=== PATIENT | female | born 1985 | race Caucasian/White ===

== ENCOUNTER 2016-10-29 07:07 | Day surgery (SDC) | payer BC ==
[2016-10-29] MEDS ORDERED: Lactated Ringers 1,000 ML IV SCH ×2 (08:15→11:15)
[2016-10-29] MEDS ORDERED: Dexamethasone 4 MG/ML 5 ML MDV IVPUSH ONE (08:30)
[2016-10-29] MEDS ORDERED: Lactated Ringers 1,000 ML IV ONE (08:30)
[2016-10-29] MEDS ORDERED: Neostigmine Methylsulfate 1 MG/ML 5 ML Syringe IV ONE (08:30)
[2016-10-29] MEDS ORDERED: Succinylcholine 200 MG/10 ML MDV IV ONE (08:30)
[2016-10-29] MEDS ORDERED: fentaNYL 100 MCG/2 ML SDV IV ONE (08:30)
[2016-10-29] MEDS ORDERED: Rocuronium 100 MG/10 ML MDV IV ONE (08:30)
[2016-10-29] MEDS ORDERED: Midazolam 1 MG/ML 2 ML SDV IV ONE (08:30)
[2016-10-29] MEDS ORDERED: Ondansetron 4 MG/2 ML SDV IVPUSH ONE (08:30)
[2016-10-29] MEDS ORDERED: Propofol 200 MG/20 ML SDV IV ONE (08:30)
[2016-10-29] MEDS ORDERED: diphenhydrAMINE 50 MG/ML SDV IV ONE (08:30)
[2016-10-29] MEDS ORDERED: Ketorolac 30 MG/ML SDV IVPUSH ONE (08:30)
--- NOTE | 2016-10-29 08:37 | PCM.HPR ---
H & P Addendum review - H & P Addendum Review Date of Original H & P: 10/25/16 Date Reviewed: 10/29/16 Patient was examined: No Changes (ok to proceed with lap tuyet)
--- NOTE | 2016-10-29 09:34 | PCM.OPNOTE ---
- General Post-Op/Procedure Note Date of Surgery/Procedure: 10/29/16 Operative Procedure(s): Lap Linette Pre Op Diagnosis: Chronic Cholecystitis Post-Op Diagnosis: Same Anesthesia Technique: General ET tube Primary Surgeon: Dominik Baptiste Anesthesia Provider: Edie MIKE in mLs: 5 Complications: None Condition: Good
[2016-10-29] MEDS ORDERED: Morphine 2 MG/ML Syringe IVPUSH PRN (09:37)
[2016-10-29] MEDS ORDERED: traMADol 50 MG Tab PO ONE (11:09)
[2016-10-29] MEDS ORDERED: Sodium Chloride 0.9% 10 ML Syringe FLUSH PRN (11:15)
--- NOTE | 2016-10-29 13:41 | OR ---
DATE OF OPERATION: 10/29/2016 SURGEON: Dominik Baptiste MD PREOPERATIVE DIAGNOSIS: Chronic cholecystitis. POSTOPERATIVE DIAGNOSIS: Chronic cholecystitis. PROCEDURE: Laparoscopic cholecystectomy. ANESTHESIA: General. MATERIALS INSPECTOR: None. PROCEDURE IN DETAIL: The patient was brought to the operating room, where general endotracheal anesthesia was administered. The abdomen was prepped with ChloraPrep and draped sterilely. An infraumbilical incision was made and extended into the peritoneal cavity without difficulty. The Tala cannulator was introduced and a pneumoperitoneum obtained. The remaining three 5-mm ports were placed in the usual positions. General exploration revealed the surface of the liver, stomach, omentum, bowel, and peritoneal surfaces to be normal. There were some adhesions on the undersurface that were taken down with blunt dissection. The cystic artery and cystic duct were clearly dissected free. Minimal oozing occurred during the dissection. The cystic artery was doubly clipped proximally and once distally and then transected. The anatomy of the cystic duct was reconfirmed and could be seen entering the gallbladder and extending towards the common bile duct. This was doubly clipped proximally and once distally and then transected. The gallbladder was then removed from the bed of the liver without difficulty. No bile leakage occurred. The gallbladder was brought out through the umbilical incision. The right upper quadrant was irrigated and inspected, return was clear, and hemostasis was assured. Ports were removed under direct vision and remained hemostatic. The umbilical fascia was closed with [id number] #0 Vicryl. The skin was closed with #4-0 Vicryl subcuticular sutures. Benzoin and Steri-Strips were placed and Band-Aids applied. The patient tolerated the procedure well. Estimated blood loss is 5 mL. Patient returned to postanesthesia in stable condition. ESTIMATED BLOOD LOSS: 5 mL. /[id number] ALLISON/GABY
[2016-10-29 13:49] VITALS: BP 128/78
== END 2016-10-29 13:21 | disposition home or self-care (01) ==
LOC: FB.SDS 07:07
PROVIDERS: ATTEND Surgery
PROC: 0FT44ZZ Resection of Gallbladder, Percutaneous Endoscopic Approach (ICD-10-PCS; principal; 2016-10-29)
DX: K81.1 Chronic cholecystitis (principal)
CPT/HCPCS: 47562; 81025; 88304; A9270; J0330; J1100; J1200; J1885; J2250; J2270; J2405; J2704; J3010; J7120

== ENCOUNTER 2019-12-21 11:17 | Emergency (ER) | payer BC, OTHER ==
[2019-12-21 11:43] VITALS: BP 130/92; PULSE 86
--- NOTE | 2019-12-21 12:38 | EDM.PDOC ---
ED HPI GENERAL MEDICAL PROBLEM - General Chief Complaint: Chest Pain Stated Complaint: CHEST PAIN Time Seen by Provider: 12/21/19 11:30 Source of Information: Reports: Patient History Limitations: Reports: No Limitations - History of Present Illness INITIAL COMMENTS - FREE TEXT/NARRATIVE: c/o chest tightness and pressure x 2w continuous, does not think she has been sxs free, d/w PCP Alejandra Linares 1w ago, pt inc'd her heartburn med to BID but did not help, PCP requested EGD in near future, has not ED in psat also with hands numb, shaky legs 1d ago with walking and felt like spasm, toe is numb, palpitations and lightheaded says it is hard to get a deep breath, no cough did wheeze last night, used alb hfa, has h/o asthma, never smoked midsternal, 3-11/29, says it is more tight than pain has been anxious went to see her mother this AM and SBP was 160 and mother advised her to come to ED has seasonal allergies in spring and fall, takes Zyrtec in AM and Benadryl in PM no f/c/d, no n/v at home with 4 children and , 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[place], was exposed to COVID, no sxs, he just competed a 2w quarantine at home and returned to work today, family maintained social distancing 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, working from home - Related Data Allergies Allergy/AdvReac Type Severity Reaction Status Date / Time codeine Allergy Itching Verified 10/29/16 07:26 piperacillin [From Zosyn] Allergy Hives Verified 12/21/19 11:35 tazobactam [From Zosyn] Allergy Hives Verified 12/21/19 11:35 seasonal Allergy Sneezing Uncoded 08/26/13 20:20 Home Meds: Home Meds Fluticasone Propionate [Flonase] 2 sprays NASBOTH DAILY 10/28/16 [History] Levothyroxine 150 mcg PO ACBREAKFAST 10/28/16 [History] Albuterol Sulfate [Albuterol Sulfate Hfa] 1 puff INH Q4H PRN 12/21/19 [History] Cetirizine HCl [Zyrtec] 10 mg PO DAILY 12/21/19 [History] Famotidine 40 mg PO DAILY 12/21/19 [History] Omeprazole Magnesium [Prilosec Otc] 20 mg PO DAILY 12/21/19 [History] Sertraline [Zoloft] 175 mg PO DAILY 12/21/19 [History] Past Medical History Cardiovascular History: Reports: Other (See Below) Other Cardiovascular History: states that she had EKG in the past as a child. Respiratory History: Reports: Asthma, Other (See Below) Other Respiratory History: on inhaler. Gastrointestinal History: Reports: GERD, Other (See Below) Other Gastrointestinal History: on Prilosec and Famotidine. MEDIA AID History: Reports: , Other (See Below) Other MEDIA AID History: states that she has her uterus removed but still has her ovaries. Psychiatric History: Reports: Anxiety Other Psychiatric History: on Sertraline Endocrine/Metabolic History: Reports: Hypothyroidism Hematologic History: Reports: Anemia - Infectious Disease History Infectious Disease History: Reports: Chicken Pox, Shingles - Past Surgical History HEENT Surgical History: Reports: Oral Surgery GI Surgical History: Reports: Cholecystectomy Endocrine Surgical History: Reports: Thyroidectomy Other Oncologic Surgeries/Procedures: states that her thyroid was removed for suspected malignancy. Social & Family History - Family History Family Medical History: Noncontributory - Tobacco Use Smoking Status *Q: Never Smoker Second Hand Smoke Exposure: No - Caffeine Use Caffeine Use: Reports: Coffee - Recreational Drug Use Recreational Drug Use: No ED ROS GENERAL - Review of Systems Review Of Systems: See Below Constitutional: Reports: No Symptoms HEENT: Reports: No Symptoms Respiratory: Reports: Wheezing Cardiovascular: Reports: Chest Pain Endocrine: Reports: No Symptoms GI/Abdominal: Reports: No Symptoms : Reports: No Symptoms Musculoskeletal: Reports: No Symptoms Skin: Reports: No Symptoms Neurological: Reports: Other (lightheaded) Psychiatric: Reports: No Symptoms Hematologic/Lymphatic: Reports: No Symptoms Immunologic: Reports: No Symptoms ED EXAM, GENERAL - Physical Exam Exam: See Below Exam Limited By: No Limitations General Appearance: Alert, WD/WN, Other (mildly anxious) Ears: Normal External Exam, Hearing Grossly Normal Nose: Normal Inspection, Normal Mucosa, No Blood Throat/Mouth: Normal Inspection, Normal Lips, Normal Teeth, Normal Gums, Normal Oropharynx, Normal Voice, No Airway Compromise Head: Atraumatic, Normocephalic Neck: Normal Inspection, Supple, Non-Tender, Full Range of Motion. No: Lymphadenopathy (R), Lymphadenopathy (L) Respiratory/Chest: No Respiratory Distress, Lungs Clear, Normal Breath Sounds, No Accessory Muscle Use, Chest Non-Tender, Other (CTA all roche, deep breath without limitation or splinting) Cardiovascular: Regular Rate, Rhythm, No Edema, No Gallop, No JVD, No Murmur, No Rub Peripheral Pulses: 0: Dorsalis Pedis (R) GI/Abdominal: Normal Bowel Sounds, Soft, Non-Tender, No Distention Back Exam: Normal Inspection, Full Range of Motion, NT Extremities: Normal Inspection, Normal Range of Motion, Non-Tender, No Pedal Edema Neurological: Alert, Oriented, CN II-XII Intact, Normal Cognition, No Motor/ Sensory Deficits Psychiatric: Anxious Skin Exam: Warm, Dry, Intact, Normal Color, No Rash Lymphatic: No Adenopathy Course - Vital Signs Last Recorded V/S: Last Vital Signs Temp 36.6 C 12/21/19 11:25 Pulse 86 12/21/19 11:25 Resp 18 12/21/19 11:25 BP 130/92 H 12/21/19 11:25 Pulse Ox 100 12/21/19 11:25 - Orders/Labs/Meds Orders: Active Orders 24 hr Category Date Time Status EKG Documentation Completion [RC] ASDIRECTED Care 12/21/19 11:44 Active CORONAVIRUS COVID-19, SILVIO Routine Lab 12/21/19 13:55 Ordered PROTEIN ELEC + INTERP, SERUM Routine Lab 12/21/19 13:55 Received EKG 12 Lead [EK] Routine Ther 12/21/19 11:20 Ordered Labs: Laboratory Tests 12/21/19 12/21/19 12/21/19 Range/Units 12:04 12:04 12:04 WBC 9.3 (4.5-12.0) X10-3/uL RBC 5.65 H (3.23-5.20) x10(6)uL Hgb 16.0 H (11.5-15.5) g/dL Hct 48.0 (30.0-51.3) % MCV 84.8 (80-96) fL MCH 28.2 (27.7-33.6) pg MCHC 33.3 (32.2-35.4) g/dL RDW 12.7 (11.5-15.5) % Plt Count 165 (125-369) X10(3)uL MPV 9.3 (7.4-10.4) fL Neut % (Auto) 73.1 (46-82) % Lymph % (Auto) 19.8 (13-37) % Lee % (Auto) 5.3 (4-12) % Eos % (Auto) 1 (1.0-5.0) % Baso % (Auto) 1 (0-2) % Neut # (Auto) 6.8 (1.6-8.3) # Lymph # (Auto) 1.8 (0.6-5.0) # Lee # (Auto) 0.5 (0.0-1.3) # Eos # (Auto) 0.1 (0.0-0.8) # Baso # (Auto) 0.1 (0.0-0.2) # D-Dimer, Quantitative 0.32 (0.0-0.59) mg/LFEU Sodium 139 (135-145) mmol/L Potassium 4.1 (3.5-5.3) mmol/L Chloride 100 (100-110) mmol/L Carbon Dioxide 26 (21-32) mmol/L BUN 9 (7-18) mg/dL Creatinine 1.0 (0.55-1.02) mg/dL Est Cr Clr Drug Dosing TNP Estimated GFR (MDRD) > 60 (>60) BUN/Creatinine Ratio 9.0 (9-20) Glucose 100 (80-116) mg/dL Calcium 9.4 (8.6-10.2) mg/dL Total Bilirubin 0.7 (0.1-1.3) mg/dL AST 23 (5-25) IU/L ALT 32 (12-36) U/L Alkaline Phosphatase 85 (56-112) IU/L Troponin I (4.0-60.3) pg/mL C-Reactive Protein (0.5-0.9) mg/dL NT-Pro-B Natriuret Pep (<=125) pg/mL Total Protein 8.6 H (6.0-8.0) g/dL Albumin 4.3 (3.5-5.2) g/dL Globulin 4.3 g/dL Albumin/Globulin Ratio 1.0 TSH, Ultra Sensitive (0.36-3.74) IU/mL Urine Color (YELLOW) Urine Appearance (CLEAR) Urine pH (5.0-6.5) Ur Specific Clare (1.010-1.025) Urine Protein (NEGATIVE) mg/dL Urine Glucose (UA) (NORMAL) mg/dL Urine Ketones (NEGATIVE) mg/dL Urine Occult Blood (NEGATIVE) Urine Nitrite (NEGATIVE) Urine Bilirubin (NEGATIVE) Urine Urobilinogen (NEGATIVE) mg/dL Ur Leukocyte Esterase (NEGATIVE) Urine RBC (0-5) Urine WBC (0-5) Ur Squamous Epith Cells (NS,R,O) Urine Bacteria (NS) 12/21/19 12/21/19 Range/Units 12:04 13:18 WBC (4.5-12.0) X10-3/uL RBC (3.23-5.20) x10(6)uL Hgb (11.5-15.5) g/dL Hct (30.0-51.3) % MCV (80-96) fL MCH (27.7-33.6) pg MCHC (32.2-35.4) g/dL RDW (11.5-15.5) % Plt Count (125-369) X10(3)uL MPV (7.4-10.4) fL Neut % (Auto) (46-82) % Lymph % (Auto) (13-37) % Lee % (Auto) (4-12) % Eos % (Auto) (1.0-5.0) % Baso % (Auto) (0-2) % Neut # (Auto) (1.6-8.3) # Lymph # (Auto) (0.6-5.0) # Lee # (Auto) (0.0-1.3) # Eos # (Auto) (0.0-0.8) # Baso # (Auto) (0.0-0.2) # D-Dimer, Quantitative (0.0-0.59) mg/LFEU Sodium (135-145) mmol/L Potassium (3.5-5.3) mmol/L Chloride (100-110) mmol/L Carbon Dioxide (21-32) mmol/L BUN (7-18) mg/dL Creatinine (0.55-1.02) mg/dL Est Cr Clr Drug Dosing Estimated GFR (MDRD) (>60) BUN/Creatinine Ratio (9-20) Glucose (80-116) mg/dL Calcium (8.6-10.2) mg/dL Total Bilirubin (0.1-1.3) mg/dL AST (5-25) IU/L ALT (12-36) U/L Alkaline Phosphatase (56-112) IU/L Troponin I < 4.0 L (4.0-60.3) pg/mL C-Reactive Protein < 0.2 L (0.5-0.9) mg/dL NT-Pro-B Natriuret Pep 93 (<=125) pg/mL Total Protein (6.0-8.0) g/dL Albumin (3.5-5.2) g/dL Globulin g/dL Albumin/Globulin Ratio TSH, Ultra Sensitive 0.76 (0.36-3.74) IU/mL Urine Color Yellow (YELLOW) Urine Appearance Slightly cloudy (CLEAR) Urine pH 6.5 (5.0-6.5) Ur Specific Clare 1.010 (1.010-1.025) Urine Protein Negative (NEGATIVE) mg/dL Urine Glucose (UA) Normal (NORMAL) mg/dL Urine Ketones Negative (NEGATIVE) mg/dL Urine Occult Blood Negative (NEGATIVE) Urine Nitrite Negative (NEGATIVE) Urine Bilirubin Negative (NEGATIVE) Urine Urobilinogen Normal (NEGATIVE) mg/dL Ur Leukocyte Esterase Negative (NEGATIVE) Urine RBC 0-5 (0-5) Urine WBC 0-5 (0-5) Ur Squamous Epith Cells Moderate H (NS,R,O) Urine Bacteria Few H (NS) Meds: Medications Discontinued Medications Generic Name Dose Route Start Last Admin Trade Name Freq PRN Reason Stop Dose Admin Ketorolac Tromethamine 60 mg 12/21/19 14:16 Toradol IM 12/21/19 14:17 ONETIME ONE - Re-Assessments/Exams Free Text/Narrative Re-Assessment/Exam: 12/21/19 14:12 workup essentially neg hgb slight inc'd at 16.0, pt reports she had a low ferritin and low hgb in past , had gotten Fe infusions, more recently she has had high hgb, so this is not new TP inc'd at 8.6, no protein in urine, will send SPEP, alb and globulin wnl however POCUS did not show definite inc'd LV size, there was possible increase in size on parasternal short axis, altho not on other views, will obtain a formal echocardiogram, radiology said they would schedule will give Toradol 60 mg IM here before d/c COVID sent as a precaution Departure - Departure Time of Disposition: 13:54 Disposition: Home, Self-Care 01 Condition: Good Clinical Impression: Nonspecific chest pain, Elevated total protein, Left ventricular hypertrophy by electrocardiogram - Discharge Information *PRESCRIPTION DRUG MONITORING PROGRAM REVIEWED*: Not Applicable *COPY OF PRESCRIPTION DRUG MONITORING REPORT IN PATIENT HARVINDER: Not Applicable Instructions: Nonspecific Chest Pain, Adult, Chest Wall Pain Referrals: Alejandra Linares [employer] OPERATOR [Primary Care Provider] - Forms: ED Department Discharge Additional Instructions: For pain and inflammation, take ibuprofen 200 mg 4 tabs and acetaminophen 500 mg 2 tabs 4 times a day for 5 days, longer if needed. Use heat for 10 minutes every 2 hours as needed. The total protein in your blood is slightly elevated at 8.6. An additional test called a serum protein electrophoresis was sent to a reference lab to further characterize the protein in your blood. Return for an echocardiogram. A COVID test was sent. Followup with your doctor in 3-4 days. Return to ED if you are feeling worse. Sepsis Event Note - Evaluation Sepsis Screening Result: No Definite Risk - Focused Exam Vital Signs: Vital Signs Temp Pulse Resp BP Pulse Ox 12/21/19 11:25 36.6 C 86 18 130/92 H 100 Date Exam was Performed: 12/21/19 Time Exam was Performed: 14:20 - My Orders Last 24 Hours: My Active Orders 12/21/19 11:20 EKG 12 Lead [EK] Routine 12/21/19 11:44 EKG Documentation Completion [RC] ASDIRECTED 12/21/19 13:55 CORONAVIRUS COVID-19, SILVIO Routine PROTEIN ELEC + INTERP, SERUM Routine - Assessment/Plan Last 24 Hours: My Active Orders 12/21/19 11:20 EKG 12 Lead [EK] Routine 12/21/19 11:44 EKG Documentation Completion [RC] ASDIRECTED 12/21/19 13:55 CORONAVIRUS COVID-19, SILVIO Routine PROTEIN ELEC + INTERP, SERUM Routine
--- NOTE | 2019-12-21 13:17 | CR ---
INDICATION: Mid-SSCP x2 weeks. Possible LVH on EKG. CHEST, 2 VIEWS: Two PA views and a lateral view of the chest were obtained 09/10 and revealed a mild dextroconvex scoliosis of the mid-thoracic spine. The heart is normal in size and shape. Mediastinum is unremarkable. Overlying EKG leads are noted. An active infiltrate or effusion was not identified. IMPRESSION: 1. No acute process. 2. Mild scoliosis. MTDD
[2019-12-21] MEDS ORDERED: Ketorolac 60 MG/2 ML SDV IM ONE (14:16)
[2019-12-24 13:11] LABS: A/G RATIO 1.2 (0.7-1.7); ALBUMIN 4.2 g/dL (2.9-4.4); ALPHA-1-GLOBULIN 0.3 g/dL (0.0-0.4); ALPHA-2-GLOBULIN 0.7 g/dL (0.4-1.0); BETA GLOBULIN 1.2 g/dL (0.7-1.3); GAMMA GLOBULIN 1.2 g/dL (0.4-1.8); GLOBULIN, TOTAL 3.4 g/dL (2.2-3.9); M-SPIKE Not Observed g/dL (Not Observed); PROTEIN, TOTAL, SERUM 7.6 g/dL (6.0-8.5)
== END 2019-12-21 14:45 | disposition home or self-care (01) ==
LOC: FB.ED 11:17
DX: I51.7 Cardiomegaly (principal); R79.89 Other specified abnormal findings of blood chemistry; J45.909 Unspecified asthma, uncomplicated; K21.9 Gastro-esophageal reflux disease without esophagitis; F41.9 Anxiety disorder, unspecified; E03.9 Hypothyroidism, unspecified; Z88.5 Allergy status to narcotic agent; Z88.0 Allergy status to penicillin; Z79.899 Other long term (current) drug therapy
CPT/HCPCS: 36415; 71046; 80053; 81001; 83880; 84165; 84443; 84484; 85025; 85379; 86140; 87635; 93005; 96372; 99285; J1885; U0002